=== PATIENT | female | born 1955 | race Caucasian/White ===

== ENCOUNTER 2024-01-21 05:58 | Day surgery (SDC) | payer OTHER ==
[2024-01-21] VITALS (11 sets, daily range): BP systolic 93–133; BP diastolic 41–78; PULSE 72–86; RESP 14–18
[~2024-01-21] VITALS: Ht 154.9 cm; Wt 81.6 kg
[~2024-01-21 05:58] MED LIST: BUPR-561 PO; CHOL100046 PO; ESOM20CA31 PO; EZET-61 PO; LOSA50TA64 PO; OMEP40CA21 PO; POTA99TA26 PO; VENL150T3 PO; VITA0.4T20 PO
[2024-01-21] MEDS: 0.9%NACL 1000ML 1,000 ML IV ONE (07:03)
[2024-01-21] MEDS ORDERED: PROPOFOL 10 MG/ML 20ML VIAL IV ONE ×2 (08:17→08:34)
== END 2024-01-21 09:46 | disposition home or self-care (01) ==
LOC: DAH 05:58 → ENDO 05:58
PROVIDERS: ATTEND Internal Medicine Gastroenterology
DX: Z12.11 Encounter for screening for malignant neoplasm of colon (principal); K57.30 Diverticulosis of large intestine without perforation or abscess without bleeding; K56.699 Other intestinal obstruction unspecified as to partial versus complete obstruction; I10 Essential (primary) hypertension; E78.5 Hyperlipidemia, unspecified; K21.9 Gastro-esophageal reflux disease without esophagitis; E66.9 Obesity, unspecified; Z68.34 Body mass index [BMI] 34.0-34.9, adult; F17.210 Nicotine dependence, cigarettes, uncomplicated; Z79.899 Other long term (current) drug therapy; Z83.3 Family history of diabetes mellitus; Z82.49 Family history of ischemic heart disease and other diseases of the circulatory system; Z98.890 Other specified postprocedural states; Z53.8 Procedure and treatment not carried out for other reasons
CPT/HCPCS: 45378; J7030 ×2; J2704 ×2; A4620; A4215; A4223; A7002; A4222; A4221; A4663; A4606; J3490